=== PATIENT | female | born 1955 | race Caucasian/White ===

== ENCOUNTER 2021-05-30 12:15 | Emergency (ER) | payer MEDICARE ==
[~2021-05-30] VITALS: Ht 160 cm; Wt 50.9 kg
[2021-05-30] MEDS ORDERED: DEXA6TAB6 PO (15:13)
[2021-05-30] MEDS ORDERED: dexamethasone 4mg tablet PO ONE (15:15)
[2021-05-30] MEDS ORDERED: DEXAMETHASONE 6 MG TABLET PO ONE (15:20)
[2021-05-30 15:35] VITALS: BP 134/88
== END 2021-05-30 15:36 | disposition home or self-care (01) ==
LOC: ER 12:16
DX: U07.1 COVID-19 (principal); R43.8 Other disturbances of smell and taste; R05.9 Cough, unspecified; R09.89 Other specified symptoms and signs involving the circulatory and respiratory systems; R50.9 Fever, unspecified; Z88.8 Allergy status to other drugs, medicaments and biological substances; Z79.899 Other long term (current) drug therapy
CPT/HCPCS: 71045; 99283; J8540